=== PATIENT | male | born 1965 | race Caucasian/White ===

== ENCOUNTER → 2017-11-16 | Outpatient (CLI) | payer OTHER | END | disposition home or self-care (01) | LOC: OIH 13:59 | PROVIDERS: ATTEND Family Medicine | DX: Z13.6 Encounter for screening for cardiovascular disorders (principal) | CPT/HCPCS: 75571 ==

== ENCOUNTER 2023-06-28 08:14 | Observation (INO) | payer OTHER ==
[2023-06-23 09:14] LABS: BASOPHILS # (AUTO) 0.02 K/uL (0.00-0.20); BASOPHILS % (AUTO) 0.5 % (0.0-5.0); EOSINOPHILS # (AUTO) 0.07 K/uL (0.00-0.70); EOSINOPHILS % (AUTO) 1.8 % (0.0-8.0); HEMATOCRIT 45.2 % (42-54); IMMATURE GRANULOCYTE ABSOLUTE 0.01 K/uL (0-1); LYMPHOCYTES # (AUTO) 1.4 K/uL (1.0-4.8); LYMPHOCYTES % (AUTO) 37.6 % (21.0-51.0); MEAN CORPUSCULAR HEMOGLOBIN 34.4 pg (27.0-33.0); MEAN CORPUSCULAR HGB CONC 36.5 g/dL (32.0-36.0); MEAN CORPUSCULAR VOLUME 94.2 fL (79-99); MONOCYTES # (AUTO) 0.4 K/uL (0.1-1.0); MONOCYTES % (AUTO) 9.1 % (3.0-13.0); NEUTROPHILS # (AUTO) 1.9 K/uL (1.8-7.7); NEUTROPHILS % (AUTO) 50.7 % (40.0-77.0); PLATELET COUNT (AUTO) 197 K/uL (130-400); RED CELL DISTRIBUTION WIDTH 11.9 % (11.0-15.5); WHITE BLOOD COUNT (AUTO) 3.8 K/uL (4.8-10.8)
[2023-06-23 09:24] LABS: CREATININE 1.1 mg/dL (0.5-1.3); POTASSIUM 4.3 mmol/L (3.5-5.1)
[2023-06-23 09:39] LABS: INR <= 0.93 (0.85-1.15)
[2023-06-23 09:40] LABS: PARTIAL THROMBOPLASTIN TIME 27.9 SEC (26.3-35.5)
[2023-06-23 09:50] VITALS: BP 160/89; PULSE 57; RESP 16
[~2023-06-28] VITALS: Ht 185.4 cm; Wt 90.2 kg
[2023-06-28] VITALS (27 sets, daily range): BP systolic 102–143; BP diastolic 53–86; PULSE 60–90; RESP 14–18; O2SAT 99–100
[~2023-06-28 08:14] MED LIST: AMLO2.5T4 PO; APIX5TAB PO; FEXO1TAB8 PO; FLUT16H NASAL
[2023-06-28] MEDS ORDERED: ONDANSETRON 4MG INJ IVP PRN (11:30)
[2023-06-28] MEDS ORDERED: HYDROCODONE/ACETAMINOPHEN 5/325 MG TAB PO PRN (11:30)
[2023-06-28] MEDS ORDERED: POTASSIUM CHLORIDE 10% ELIXIR 20 MEQ/15 ML UDCUP PO PRN (11:30)
[2023-06-28] MEDS ORDERED: KCL 20 MEQ ERTAB PO PRN (11:30)
[2023-06-28] MEDS ORDERED: POTASSIUM CHLORIDE 20MEQ/100ML 100 ML IV PRN (11:30)
[2023-06-28] MEDS: 0.9%NACL 1000ML 1,000 ML IV SCH (11:30)
[2023-06-28] MEDS ORDERED: MORPHINE 4 MG SYG IVP PRN (11:30)
[2023-06-28] MEDS: LACTATED RINGERS 1000ML 1,000 ML IV ONE (12:18)
[2023-06-28] MEDS: CEFAZOLIN SODIUM 2 GM VIAL ONE (12:18)
[2023-06-28] MEDS: ACETAMINOPHEN 1,000 MG/100 ML VIAL IV ONE ×2 (12:24→17:09)
[2023-06-28] MEDS: FAMOTIDINE 20MG VIAL IV ONE (12:24)
[2023-06-28] MEDS ORDERED: KETAMINE 50MG/ML SYRINGE 50 MG/ML DISP.SYRIN ONE (12:26)
[2023-06-28] MEDS ORDERED: ROPIVACAINE 0.5% 5MG/ML 30ML ONE (12:26)
[2023-06-28] MEDS ORDERED: LIDOCAINE PF 100MG/5ML (2%) SYRINGE 5ML ONE (12:31)
[2023-06-28] MEDS ORDERED: PROPOFOL 10 MG/ML 20ML VIAL IV ONE (12:31)
[2023-06-28] MEDS ORDERED: ROCURONIUM BROMIDE 10MG/1ML 5ML VL ONE ×2 (12:31→14:15)
[2023-06-28] MEDS ORDERED: FENTANYL CITRATE PF 50 MCG/1 ML 2ML VIAL ONE (12:31)
[2023-06-28] MEDS ORDERED: ONDANSETRON 4MG INJ ONE (12:56)
[2023-06-28] MEDS ORDERED: DEXAMETHASONE SOD PHOSPHATE 10MG/ML 1ML VIAL ONE (12:56)
[2023-06-28] MEDS: CEFAZOLIN SODIUM 3 GM VIAL IVPB ONE (13:10)
[2023-06-28] MEDS ORDERED: TRANEXAMIC ACID 1000MG/10ML ONE (13:30)
[2023-06-28] MEDS ORDERED: EPHEDRINE SULFATE 50 MG/ML AMPULE ONE (14:02)
[2023-06-28] MEDS ORDERED: NEOSTIGMINE METHYLSULFATE 1MG/ML IV ONE (15:35)
[2023-06-28] MEDS ORDERED: GLYCOPYRROLATE 0.2 MG/ML 5 ML VIAL ONE (15:35)
[2023-06-28] MEDS: ONDANSETRON 4MG INJ ONE (16:45)
[2023-06-28] MEDS: MEPERIDINE-PF 25 MG/ML SYG ONE ×2 (16:46→17:09)
[2023-06-28] MEDS: CEFAZOLIN SODIUM 2 GM VIAL IVPB SCH (19:25)
[2023-06-28] MEDS: IBUPROFEN 800MG + NS 250ML IV SCH (19:25)
[2023-06-28] MEDS: ACETAMINOPHEN 1,000 MG/100 ML VIAL IV SCH (19:25)
[2023-06-28] MEDS: FAMOTIDINE 20MG TAB PO SCH (20:15)
[2023-06-28] MEDS: ASPIRIN 81 MG EC TAB PO SCH (20:15)
[2023-06-29 04:41] LABS: HEMATOCRIT 37.7 % (42-54); MEAN CORPUSCULAR HEMOGLOBIN 34.4 pg (27.0-33.0); MEAN CORPUSCULAR HGB CONC 35.8 g/dL (32.0-36.0); MEAN CORPUSCULAR VOLUME 95.9 fL (79-99); RED BLOOD CELL COUNT(AUTO) 3.93 MIL/uL (4.50-6.20); RED CELL DISTRIBUTION WIDTH 11.9 % (11.0-15.5); WHITE BLOOD COUNT (AUTO) 11.7 K/uL (4.8-10.8)
[2023-06-29 04:51] VITALS: BP 119/68; PULSE 74; RESP 18
[2023-06-29 04:59] LABS: CREATININE 1.3 mg/dL (0.5-1.3); POTASSIUM 4.3 mmol/L (3.5-5.1)
[2023-06-29 08:00] VITALS: BP 133/70; PULSE 68; RESP 18; O2SAT 96
[2023-06-29] MEDS: FLUTICASONE PROPIONATE 50MCG/SPRAY 16 GM BOTTLE EN SCH (09:00)
[2023-06-29] MEDS: POLYETHYLENE GLYCOL 3350 17 GM POWD.PACK PO SCH (09:33)
[2023-06-29] MEDS: AMLODIPINE 2.5 MG TAB PO SCH (09:33)
[2023-06-29] MEDS: HYDROCODONE/ACETAMINOPHEN 10/325 MG TAB PO PRN (10:23)
[2023-06-29 11:59] VITALS: BP 136/77; PULSE 75; RESP 18
[2023-07-01] MEDS ORDERED: BISACODYL 10 MG SUPP.RECT RC PRN (11:30)
== END 2023-06-29 15:25 | disposition home or self-care (01) ==
LOC: DAH 08:14 → DAHIP 08:15 → 4DH 18:10
PROVIDERS: ADMIT Orthopaedic Surgery; ATTEND Orthopaedic Surgery
DX: M16.12 Unilateral primary osteoarthritis, left hip (principal); I10 Essential (primary) hypertension; E78.5 Hyperlipidemia, unspecified; E83.111 Hemochromatosis due to repeated red blood cell transfusions; Z86.718 Personal history of other venous thrombosis and embolism; Z79.899 Other long term (current) drug therapy
CPT/HCPCS: 80048 ×2; 85025; 85610; 85730; 36415 ×2; 87641; 64450; 27130; 96365; 96366 ×2; 96375; 96368; 88311; 88304; 73502; 85027; 97161; 97116 ×2; 97530 ×2; A6260; C1713; G0378 ×22; A4663; A4649 ×2; C1769; J0690 ×4; J7120; J3490 ×7; J3010; J1100; J2001; J2704; J2405 ×2; J2710; J2175 ×2; J2795; J1741 ×2; A6223; G0168; A4930; A6212; C1776; A5120; A4215; A4223; A4222; A4221; 96376